=== PATIENT | female | born 1945 | race Caucasian/White ===

== ENCOUNTER 2025-01-19 11:45 | Day surgery (SDC) | payer MEDICARE, SELFPAY ==
--- NOTE | 2025-01-19 12:39 | P.PNANES_ITS ---
[facility] Disclaimer: The information contained in this section may have been updated after the patient was seen, as this information can be updated by other users. Social History Smoking Status: Never smoker alcohol intake: never substance use type: denies use current occupational status: retired Travel in the last 8 weeks: None [facility] Anesthesia Checklist Patient Identification Patient Identification: Arm Band and Verbal (Name & ) Structural Data Admitted From: Home Planned Operative Procedure/s: colonoscopy Consent for Planned Operative Procedure(s) Verified: Yes Verified Documents: Surgical Consent NPO Status Verified Time NPO: 00:00 Additional verifications Patient : No Anesthesia Reactions: No Hx Blood Transfusions: No Blood Transfusion Reaction: No Cephalosporin Allergy: No Previous Colonoscopy: Yes Cardiovascular Assessment Heart Sounds: S1 & S2 Pulse Strength: Baseline Pulse Rhythm: Regular Peripheral Edema: No Airway Assessment Mallampati Score:: Class I C-Spine Mobility Assessed: Yes TMJ Mobility Assessed: Yes Dentition: Dentures-good fit Neurological Assessment Level of Consciousness: Awake, Alert and Appropriate Hx Seizures: No Numbness or tingling in extremities: No Anesthesia Plan Anesthesia Risk discussed: No Anesthesia Plan: Verified Anesthesia Type: MAC
[2025-01-19 12:40] VITALS: BP 157/79; PULSE 72; RESP 18; TEMP 36.5; O2SAT 98; BMI 23.9
[2025-01-19 14:07] VITALS: O2SAT 98
--- NOTE | 2025-01-19 14:12 | P.HP_ITS ---
History of Present Illness *Admission Date: 01/19/25 *Reason for visit:: Surveillance *History of present illness: Mrs. Love is a 79-year-old female who is here for diagnostic colonoscopy. The patient states that 1 month ago she had more severe lower abdominal pain and discomfort caused by constipation. She normally has some chronic loose stools and diarrhea. Her last colonoscopy was 12 years ago. The examination is deemed medically necessary for diagnostic colonoscopy. The patient has been seen, interviewed and examined prior to the procedure by both myself and the anesthesia provider. [facility] Disclaimer: The information contained in this section may have been updated after the patient was seen, as this information can be updated by other users. Medical History (Updated 01/19/25 @ 14:13 by Bautista Calloway II, MD) History of COVID-19 History of gastroesophageal reflux (GERD) Hypothyroid Hyperlipidemia Hypertension Surgical History (Updated 01/19/25 @ 12:47 by Paulette Zimmerman RN) Hx of colonoscopy Hx of eye surgery History of hysterectomy Family History (Updated 01/19/25 @ 12:47 by Paulette Zimmerman RN) Other Stroke Social History (Updated 01/19/25 @ 12:48 by Paulette Zimmerman RN) Smoking Status: Never smoker alcohol intake: never substance use type: denies use current occupational status: retired Travel in the last 8 weeks: None caffeine: Yes Have you lived/traveled outside [place] in past 30 days?: No Contact w/someone who lives/traveled outside US past 30 days?: No Exposure to someone with infectious disease in past 14 days?: No Do you have a fever (greater than 100.4 F or 38 C)?: No Have you tested positive for COVID-19: Yes Exposed to someone with COVID-19 in past 14 days?: No Do you have a sore throat?: No Do you have a cough?: No Do you have any weakness?: No Are you experiencing any nausea/vomitting?: No Do you have any diarrhea?: No Are you experiencing any unusual bleeding?: No Do you have any muscle aches/pain?: No Do you have any abdominal pain?: No Are you experiencing loss of taste or smell?: No Review of Systems Review of Systems Review of systems (narrative): Negative *Cardiovascular Comments: Negative *Gastrointestinal Comments: Negative *Genitourinary Comments: Negative *Musculoskeletal Comments: Negative *Neurologic Comments: Negative Meds Home Medications and Allergies Home Medications ?Medication ?Instructions ?Recorded ?Confirmed ?Type sodium,potassium,mag sulfates 17.5 See Rx Instructions PO .COMPLEX 01/16/25 Rx gram-3.13 gram-1.6 gram oral soln #354 mL (Suprep Bowel Prep Kit) ezetimibe 10 mg tablet 0 mg PO DAILY 01/19/25 01/19/25 History hydrochlorothiazide 25 mg tablet 25 mg PO DAILY 01/19/25 01/19/25 History levothyroxine 25 mcg tablet 0 mcg PO DAILY 01/19/25 01/19/25 History (Synthroid) metoprolol succinate 25 mg capsule 50 mg PO DAILY 01/19/25 01/19/25 History sprinkle, ext. release 24 hr pantoprazole 20 mg tablet,delayed 0 mg PO DAILY 01/19/25 01/19/25 History release travoprost (benzalkonium) 0.004 % 1 drp ophthalmic (eye) DAILY 01/19/25 01/19/25 History eye drops New Prescriptions to Start Prescriptions: Allergies Allergy/AdvReac Type Severity Reaction Status Date / Time No Known Allergies Allergy Verified 01/19/25 12:54 Exam Data for Last 24 hours Vital signs and Labs for Last 24 Hours: Temp Pulse Resp BP Pulse Ox O2 Del Method O2 Flow Rate 97.7 F 72 18 157/79 H 98 Nasal Cannula 5 01/19/25 12:40 01/19/25 12:40 01/19/25 12:40 01/19/25 12:40 01/19/25 12:40 01/19/25 14:07 01/19/25 14:07 I & O for Last 24 hours: Intake & Output 01/16/25 01/17/25 01/18/25 01/19/25 23:59 23:59 23:59 23:59 Weight 114 lb *Routine HEENT Exam Head: Present normocephalic Eye: Present EOMI and PERRL ENT: Present mucous membranes moist *Routine Neck Exam Neck: Present supple *Routine Respiratory Exam Respiratory: Present CTA bilaterally *Routine Cardiovascular Exam Cardiovascular: Present RRR *Routine Abdominal Exam Abdominal: Present soft and normoactive bowel sounds; Absent tenderness *Routine Rectal Exam Rectal:: deferred *Routine Genitalia Exam Genitalia:: deferred *Routine Extremities Exam Extremities: Absent cyanosis, clubbing or edema *Routine Skin Exam Skin: Present warm; Absent rash *Routine Neurological Exam Neurological: Present alert and oriented X3 Assessment and Plan *Assessment and plan (1) Lower abdominal pain: Status: Acute Category: Medical Code(s): R10.30 - Lower abdominal pain, unspecified (2) Change in bowel habits: Status: Acute Category: Medical Code(s): R19.4 - Change in bowel habit Plan A/P: 1. Lower abdominal pain with change in bowel habits and constipation that occurred about a month ago has resolved is the preprocedural diagnosis. The patient's last colonoscopy was 12 years ago. She does have some baseline loose stools and diarrhea. The patient will be anesthetized/sedated using MAC sedation. The patient has been seen and examined. Cardiac and lung assessment prior to the examination is stable. Proceed with planned diagnostic colonoscopy
--- NOTE | 2025-01-19 14:14 | P.PCN_ITS ---
[facility] Procedure Note Date: 01/19/25 Time: 14:25 Procedure Note:: Colonoscopy Procedure Report: Colonoscopy with cold snare polypectomy Endoscopist: Bautista Calloway II, MD Referring physician: Edy Zavala MD, [address] [facility] [address] [place] [address] Date of Procedure: January 19, 2025 Equipment: Olympus 190 variable stiffness pediatric colonoscope Sedation: MAC sedation Indication: Mrs. Love is a 79-year-old female who is here for diagnostic colonoscopy. The patient did have a bout of lower abdominal pain with associated constipation about a month ago. She normally runs baseline with loose stools and some diarrhea. The patient took prunes and MiraLAX and improved. She reports no rectal bleeding, weight loss or family history of colon cancer. Her last colonoscopy was 12 years ago with me. Procedure: Prior to the procedure, a history and physical exam was performed, and patient's medications and allergies were reviewed. The risks, benefits and alternatives of the sedation and procedure were discussed with the patient. All questions were answered and informed consent was obtained. The patient was brought to the procedure room. Patient identification and proposed procedure were verified by the physician and the nurse. The patient was placed in a left lateral decubitus position and the scope was passed under direct vision. Throughout the procedure, the patient's blood pressure, pulse, and oxygen saturations were monitored continuously. The colonoscopy was accomplished without difficulty. The patient tolerated the procedure well. Findings: On digital rectal examination there was normal rectal tone. There were no external hemorrhoids. The colonoscope was introduced through the anal canal to the rectum and advanced to the cecum. The ileocecal valve and appendiceal orifice were identified. The scope was advanced a short distance into the ileum which appeared grossly normal. The scope was then withdrawn into the colon. There were 2 diminutive polyps (cecum x 2 (3 and 4 mm)) that were removed via cold snare polypectomy. The remaining cecum, ascending and transverse colon and mucosa were grossly normal. There were scattered diverticuli throughout the descending and sigmoid colon (LEFT colon). There was some pericolonic adhesions adjacent to the sigmoid colon from prior hysterectomy with a stiff and somewhat fixed sigmoid colon. The rectum itself was normal. Upon retroflexion within the rectum there were grade 1-2 internal hemorrhoids. The preparation was excellent throughout with [place] Preparation Score of 9. The cecal time was 12 minutes. Impression: 1. Diminutive colonic polyps x 2 2. Left-sided diverticulosis 3. Grade 1-2 internal hemorrhoids Plan: I will follow-up the polyp histology. The patient will not require further surveillance colonoscopy. I would encourage psyllium fiber bulking supplementation on a maintenance basis.
[2025-01-19 14:26] VITALS: BP 106/68; PULSE 74; RESP 18; O2SAT 100
[2025-01-19 14:36] VITALS: BP 105/58; PULSE 69; RESP 18; O2SAT 100
[2025-01-19 14:46] VITALS: BP 100/62; PULSE 71; RESP 18; O2SAT 100
[2025-01-19 15:09] VITALS: BP 130/61; PULSE 61; RESP 18; O2SAT 100
== END 2025-01-19 15:09 | disposition home or self-care (01) ==
PROVIDERS: PCP Family Medicine; Visit Provider Internal Medicine Gastroenterology
PROC: 0DJD8ZZ Inspection of Lower Intestinal Tract, Via Natural or Artificial Opening Endoscopic (ICD-10-PCS; CPT 45378; principal; 2025-01-19 13:30)
DX: K63.5 Polyp of colon (principal); K57.30 Diverticulosis of large intestine without perforation or abscess without bleeding; K64.8 Other hemorrhoids; R10.30 Lower abdominal pain, unspecified; R19.4 Change in bowel habit
CPT/HCPCS: 45385